=== PATIENT | female | born 1965 | race Caucasian/White ===

== ENCOUNTER 2022-06-10 00:12 | Emergency (ER) | payer OTHER ==
[~2022-06-10 00:12] MED LIST: CYMBALTA 30MG C30 MG PO; FIORICET1 EACH PO; FLEXERIL10 MG PO; PREDNISONE 20MG20 MG PO
[2022-06-10 01:27] LABS: BASOPHIL 0.6 % (0-2); EOSINOPHIL 2.7 % (0-5); HGB 13.1 g/dl (12.5-16.0); LYMPHOCYTE 36.5 % (15-48); MCH 31.4 pg (25.0-31.0); MCHC 36.4 g/dL (32.0-36.0); MCV 86.3 fL (78.0-100.0); MONOCYTE 9.5 % (0-12); MPV 10.3 fL (6.0-9.5); NEUTROPHIL 50.5 % (41-80); NRBC 0; PLT 229 K/uL (150-400); RBC 4.17 M/uL (4.20-5.40); RDW 11.8 % (11.5-14.0); WBC 5.2 K/uL (4.0-10.5)
[2022-06-10 01:56] LABS: BILIRUBIN - TOTAL 0.6 mg/dL (0.2-1.0); BUN/CREAT RATIO (CALC) 13.6 RATIO; CREATININE 0.81 mg/dL (0.51-0.95); GLOBULIN (CALCULATION) 2.5 g/dL; POTASSIUM 3.7 mmol/L (3.5-5.1); TOTAL PROTEIN 6.5 g/dL (6.4-8.2)
[2022-06-10] MEDS ORDERED: NEURONTIN100 MG PO (02:45)
== END 2022-06-10 03:10 | disposition home or self-care (01) ==
LOC: FER 00:12
PROVIDERS: Emergency Medicine
DX: M79.2 Neuralgia and neuritis, unspecified (principal)
CPT/HCPCS: 36415; 70450; 80053; 85025; 93005; J1885; Q0162